=== PATIENT | male | born 2000 | race Caucasian/White ===

== ENCOUNTER 2021-04-17 14:54 | Emergency (ER) | payer OTHER, SELFPAY ==
--- NOTE | ~2021-04-17 | US_ITS ---
EXAMINATION: US SCROTUM CLINICAL INFORMATION: Right testicular pain and swelling. Rule out torsion.. COMPARISON: None TECHNIQUE: A sonogram of the scrotum was performed assessing campbell-scale appearance and color Doppler flow. Spectral Doppler analysis of the arterial and venous flow were performed in the testes bilaterally. FINDINGS: RIGHT: Right testicle measures 4.2 x 1.9 x 2.9 cm, volume 12.2 mL. No focal testicular parenchymal lesions are visualized. Spectral Doppler analysis with arterial and venous flow demonstrated in the right testis. Right epididymal head is normal in size. No right hydrocele or varicocele is seen. Trace physiologic appearing fluid. Right epididymal Doppler flow is within normal limits. LEFT: Left testicle measures 4 x 2.1 x 2.9 cm, volume 12.8 mL. No focal testicular parenchymal lesions are visualized. Chronic appearing 9 mm calcification in the testicular parenchyma, could reflect microlithiasis. Spectral Doppler analysis with arterial and venous flow demonstrated in the left testis. Left epididymal head is normal in size. Left epididymal 0.3 cm head cyst. No left hydrocele or varicocele is seen. Left epididymal Doppler flow is normal. Small physiological fluid in the scrotum. US/US scrotum IMPRESSION: 1. No sonographic findings to suggest acute/active testicular torsion. 2. There is a 0.3 cm left epididymal head cyst. A 9 mm left testicular parenchymal calcification, could represent microlithiasis. 3. Small physiological appearing fluid in the scrotum.
[2021-04-17 15:02] VITALS: BP 130/72; PULSE 59; RESP 16; TEMP 36.8; O2SAT 99; BMI 24.2
--- NOTE | 2021-04-17 16:15 | ED.MALEGU ---
HPI - Male Genitourinary General Chief complaint: Urogenital-Male Stated complaint: testicular pain Time Seen by Provider: 04/17/21 16:02 Source: patient Mode of arrival: ambulatory Limitations: no limitations History of Present Illness HPI Narrative: 20-year-old male referred to the emergency department from urgent care for evaluation of right testicular pain. The patient states these had intermittent testicular pain for 2 days. He describes the pain as a slight discomfort . He states that he felt his testicle and it was tender. He also states that he felt like his testicle was swollen. He did not notice any penile discharge. He denied frequency, urgency or dysuria. The patient is sexually active. He states he last had sex 3 days prior. The patient was seen at a local urgent care clinic and started on doxycycline. He was referred to the emergency department for an ultrasound to rule out testicular torsion. Related Data Allergies Allergy/AdvReac Type Severity Reaction Status Date / Time cat dander [cats] Allergy Itching Verified 04/17/21 15:06 Review of Systems Review of Systems: Yes all other systems are reviewed and are negative [facility] Past Medical History [facility] Narrative: Past medical history: Asthma. Past surgical history: None. Social history: He denies tobacco use. The patient states that he drinks 3 beers per week. He denies drug use. Medical History (Updated 04/17/21 @ 16:23 by Hemal Vargas MD) Asthma Physical Exam Vital Signs: Vital Signs: Last Vital Signs Temp 98.3 F 04/17/21 15:02 Pulse 59 04/17/21 15:02 Resp 16 04/17/21 15:02 BP 130/72 04/17/21 15:02 Pulse Ox 99 04/17/21 15:02 Body Mass Index 24.2 Const: General: cooperative and no acute distress Orientation/consciousness: oriented to person and oriented to place Limitations: no limitations HENMT: Head: Yes normal to inspection, Yes normocephalic and Yes atraumatic Ears: external ears normal General nose exam: Normal external nose present Face and sinus: Yes normal facial exam Mouth: Normal oral and palatal mucosa present Throat: Yes posterior oropharynx normal Eyes: General: appearance normal, both eyes and all related structures Pupils: Equal, round and reactive pupils present Neck: Neck: Yes normal visual inspection, Yes no lymphadenopathy, Yes trachea midline and Yes supple Chest: Chest palpation & inspection: normal inspection of the chest and normal palpation of entire chest wall Resp: Effort & Inspection: normal respiratory effort and able to speak in complete sentences Auscultation: clear to auscultation bilaterally Cardio: Rate: regular rate Rhythm: regular rhythm Heart sounds: S1 normal heart sound present, S2 normal heart sound present and no murmurs GI: Inspection: Yes normal to inspection Palpation (GI): Soft to palpation, nontender and no guarding Auscultation: normal bowel sounds : General: Yes no CVA tenderness Penis: normal penis and circumcised Meatus: meatus normal and no meatla discharge Scrotum: scrotum normal and no scrotal swelling Testes: testicular tenderness ( Mild right) Back/Spine/Pelvis: Back: no CVA tenderness Skin: General skin exam: no rashes or lesions noted Neuro: General: oriented to person and oriented to place Cranial nerves: Yes CN's II-XII intact bilaterally and Yes Equal, round and reactive pupils present Cognition (Neuro): normal cognition Motor exam (neuro): 5/5 motor strength present throughout Extrem: General: Yes normal to inspection Psych: Appearance: grossly normal Speech and movement: Normal speech and movement present Affect: normal affect Attitude: cooperative Thought process: Normal thought process present Thought content: Normal thought content present Course Course Course Narrative: 20-year-old man who presents emergency department for evaluation of intermittent, mild right testicular pain times 2 days. the patient was seen at a local urgent care clinic and referred to the emergency department to rule out torsion. Examination did reveal mild tenderness with palpation of the patient's right testicle otherwise was unremarkable. Doppler ultrasound revealed no evidence of torsion or other significant abnormality to explain the patient's pain. The patient was started on doxycycline for possible epididymitis/ orchitis. I did tell the patient to get the prescription filled and take it as prescribed. The patient was advised to take Tylenol and ibuprofen 1st pain. He was discharged home with verbal and printed instructions on testicular / scrotal pain. Discharge Plan Discharge Clinical Impression: Orchitis of right testicle Patient Disposition: Home, Self-Care Instructions: Orchitis (ED) Additional Instructions: The Doppler ultrasound of your testicles were normal, there is no evidence for torsion (twisted) testicle. Your pain is most likely secondary to an infection of the testicle. Get the prescription from the urgent care clinic for doxycycline filled and take it as prescribed. Take ibuprofen 200 mg pills, 3 pills every 6 hours as needed for pain. Take Tylenol (acetaminophen) 500 mg pills, 2 pills every 4 to 6 hours as needed for pain. Follow-up with your doctor in 2 days. Please return to the emergency department if your symptoms get worse or if you develop any symptoms that are concerning to you.
[2021-04-17 16:33] VITALS: BP 146/67; PULSE 78; RESP 16; TEMP 37.1; O2SAT 99
== END 2021-04-17 16:54 | disposition home or self-care (01) ==
LOC: HO.ED 16:30
PROVIDERS: Emergency Provider Emergency Medicine Emergency Medical Services
DX: N45.2 Orchitis (principal)
CPT/HCPCS: 76870; 99283; 99284